=== PATIENT | male | born 1960 | race Caucasian/White ===

== ENCOUNTER 2022-08-06 18:40 | Emergency (ER) | payer BC ==
[2022-08-06 18:49] VITALS: BP 123/61
[2022-08-06] MEDS ORDERED: TETANUS/DIPHTHERIA/PERTUSSIS 0.5 ML SYRINGE IM ONE (18:54)
[2022-08-06] MEDS ORDERED: BACITRACIN ZINC OINT 1 PACKET TOP STA (18:57)
--- NOTE | 2022-08-06 18:57 | ED Physician Documentation ---
History of Present Illness - Stated complaint Stated Complaint: L FINGER LAC - Chief complaint Chief Complaint: Wound - Additonal information Additional information: 62-year-old male presents emergency department for evaluation of a left thumb injury. He was using a shirley nail gun and accidentally impaled his left thumb with a nail. He removed it it went through and through the nailbed however he is here for tetanus update. Last tetanus was more than 10 years ago. He is right-hand dominant. Denying any pain. No paresthesias. Review of Systems Constitutional: reports: Reviewed and negative Skin: reports: Lesions PD PAST MEDICAL HISTORY - Allergies Allergies/Adverse Reactions: Allergies Allergy/AdvReac Type Severity Reaction Status Date / Time No Known Drug Allergies Allergy Verified 08/06/22 18:46 PD ED PE EXPANDED - Extremities Extremities: Left finger(s) (Puncture through the left medial nail extending through the fat pad. Bleeding controlled with pressure. Normal flexion extension at DIP joint of left thumb.) Results - Vitals Vitals: Vital Signs - 24 hr 08/06/22 18:46 Temperature 36.5 C Heart Rate 62 Respiratory 16 Rate Blood Pressure 123/61 O2 Saturation 100 Oxygen O2 Source Room air - Rads (name of study) left thumb Radiology: EMP read indepedently (No foreign body identified. No acute fracture dislocation or osseous lesion) PD MEDICAL DECISION MAKING - ED course Complexity details: considered differential, d/w patient, d/w family ED course: 62-year-old male presents emergency department requesting tetanus vaccination after he accidentally nailed his left thumb with a [place]. The nail was removed at home. We did obtain an x-ray of the thumb to ensure no distal phalanx fracture and the x-ray is negative. His tetanus was updated today. He is discharged home in stable condition. We discussed the usual routine care measures for puncture wounds as well as the emergent return precautions for concerns of infection. Departure - Departure Disposition: 01 Home, Self Care Clinical Impression: Puncture wound Condition: Stable Record reviewed to determine appropriate education?: Yes Comments: Giovanny you came to the emergency department today because you nailed your left thumb with a Shirley Hutto at home. You removed the nail. The x-ray does not suggest a broken bone. We have updated your tetanus today and it should be good for the next 7 to 10 years. Because this is a form of a puncture wound it is important that you evaluate your thumb for signs of infection such as fevers, redness milky drainage or increased pain. If that occurs please return immediately to the ER for second evaluation.
--- NOTE | 2022-08-06 19:35 | XRAY Report ---
PROCEDURE: Finger(s) LT INDICATIONS: Rich Nail through left thumb; ? fx TECHNIQUE: AP hand, 2 views of the there is finger(s) acquired. COMPARISON: None FINDINGS: Bones: No fractures or dislocations. Mild arthritic change. No suspicious bony lesions. Soft tissues: No suspicious soft tissue calcifications. No radiodense foreign bodies IMPRESSION: No fractures or foreign bodies. Reviewed by: Carmita Alcazar MD on 08/06/2022 7:33 PM PST Approved by: Carmita Alcazar MD on 08/06/2022 7:33 PM PST Station ID: [id number]
== END 2022-08-06 19:36 | disposition home or self-care (01) ==
LOC: ED 18:40
DX: S61.132A Puncture wound without foreign body of left thumb with damage to nail, initial encounter (principal); W29.4XXA Contact with nail gun, initial encounter; Z23 Encounter for immunization
CPT/HCPCS: 73140; 90471; 90715; 99281; 99283; A9270